=== PATIENT | male | born 1960 | race Caucasian/White ===

== ENCOUNTER 2021-01-03 10:35 | Outpatient (CLI) | payer OTHER | END 2021-01-03 10:36 | disposition home or self-care (01) | LOC: CSHCT 10:35 | PROVIDERS: ATTEND Surgery | DX: K80.20 Calculus of gallbladder without cholecystitis without obstruction (principal); Z96.89 Presence of other specified functional implants; N28.1 Cyst of kidney, acquired | CPT/HCPCS: 74150 ==